=== PATIENT | female | born 1970 | race Caucasian/White ===

== ENCOUNTER 2022-05-22 10:00 | Emergency (ER) | payer SELFPAY ==
[~2022-05-22] VITALS: Ht 154.9 cm; Wt 70.0 kg
[2022-05-22] MEDS ORDERED: KETOROLAC TROMETHAMINE 30 MG/ML VIAL IVP ONE (11:45)
[2022-05-22] MEDS ORDERED: ACETAMINOPHEN 500 MG TABLET PO ONE (11:45)
[2022-05-22] MEDS ORDERED: ONDANSETRON HCL 4 MG/2 ML VIAL IVP ONE (11:45)
[2022-05-22] MEDS ORDERED: SODIUM CHLORIDE 0.9% 2,000 ML IV ONE (11:45)
[2022-05-22] MEDS ORDERED: MORPHINE SULFATE 4 MG/ML SYRINGE IVP ONE (12:00)
[2022-05-22 12:19] LABS: BASOPHILS % (AUTO) 0.5 % (0.0-2.0); EOSINOPHILS % (AUTO) 0.5 % (1.0-6.0); HEMOGLOBIN 13.3 g/dL (12.0-16.0); LYMPHOCYTES # (AUTO) 2.1 K/uL (1.0-4.8); LYMPHOCYTES % (AUTO) 39.3 % (22.0-44.0); MEAN CORPUSCULAR HEMOGLOBIN 30.9 pg (26.0-34.0); MEAN CORPUSCULAR HGB CONC 34.1 G/dL (31.0-37.0); MEAN CORPUSCULAR VOLUME 91 fL (80-100); MONOCYTES # (AUTO) 0.4 K/uL (0.1-1.0); MONOCYTES % (AUTO) 7.5 % (2.0-9.0); NEUTROPHILS # (AUTO) 2.8 K/uL (1.8-7.7); NEUTROPHILS % (AUTO) 52.2 % (40.0-70.0); PLATELET COUNT (AUTO) 248 K/uL (150-450); RED CELL DISTRIBUTION WIDTH 12.6 % (11.5-14.5)
[2022-05-22 12:28] LABS: ANION GAP 6 mmol/L (8-16); CALCIUM, TOTAL 9.2 mg/dL (8.8-10.5); CARBON DIOXIDE 28 mmol/L (22-29); CHLORIDE 106 mmol/L (98-107); GLOMERULAR FILTR. RATE CALC > 60 mL/min (>60); GLUCOSE,RANDOM 188 mg/dL (70-110); POTASSIUM 3.9 mmol/L (3.5-5.1); SODIUM SERUM 140 mmol/L (136-145); UREA NITROGEN, BLOOD 13 mg/dL (7-18)
[2022-05-22 12:34] LABS: ALANINE AMINOTRANSFERASE 44 U/L (12-78); ALBUMIN 3.6 g/dL (3.4-5.0); ALKALINE PHOSPHATASE 80 U/L (46-116); ASPARTATE AMINOTRANSFERASE 29 U/L (15-37); BILIRUBIN,TOTAL 0.8 mg/dL (0.1-1.0); TOTAL PROTEIN, SERUM 7.7 g/dL (6.4-8.2)
[2022-05-22 13:36] VITALS: BP 144/70
[2022-05-22] MEDS ORDERED: PROM-163 PO (14:01)
[2022-05-22] MEDS ORDERED: AMLO5TAB66 PO (14:01)
[2022-05-22] MEDS ORDERED: ACET-2080 PO (14:01)
== END 2022-05-22 14:13 | disposition home or self-care (01) ==
LOC: EMS 10:03
DX: G43.909 Migraine, unspecified, not intractable, without status migrainosus (principal); I10 Essential (primary) hypertension
CPT/HCPCS: 36415; 70450; 80053; 85025; 96361; 96374; 96375; 99284; J1885; J2270; J2405; J7030

== ENCOUNTER 2025-05-13 23:49 | Emergency (ER) | payer MEDICAID, OTHER ==
[~2025-05-13] VITALS: Ht 142.2 cm; Wt 53.6 kg
[~2025-05-13 23:49] MED LIST: ACET-2080 PO; AMLO5TAB66 PO; PROM-223 PO
[2025-05-13 23:52] VITALS: TEMP 97.9
[2025-05-14 00:15] LABS: GLUCOMETER DEV NAME(LOC) ERT.7; GLUCOSE,POINT OF CARE 137 MG/DL (70-110)
[2025-05-14 00:29] LABS: BASOPHILS % (AUTO) 0.3 % (0.0-2.0); EOSINOPHILS % (AUTO) 0.7 % (1.0-6.0); HEMATOCRIT 38.8 % (36-46); HEMOGLOBIN 13.2 g/dL (12.0-16.0); LYMPHOCYTES # (AUTO) 2.5 K/uL (1.0-4.8); LYMPHOCYTES % (AUTO) 31.2 % (22.0-44.0); MEAN CORPUSCULAR HEMOGLOBIN 30.9 pg (26.0-34.0); MEAN CORPUSCULAR VOLUME 91 fL (80-100); MONOCYTES # (AUTO) 0.5 K/uL (0.1-1.0); MONOCYTES % (AUTO) 5.8 % (2.0-9.0); PLATELET COUNT (AUTO) 253 K/uL (150-450); RED BLOOD CELL COUNT(AUTO) 4.27 MIL/uL (4.00-5.20); RED CELL DISTRIBUTION WIDTH 12.5 % (11.5-14.5); WHITE BLOOD COUNT (AUTO) 8.1 K/uL (4.5-11.0)
[2025-05-14 00:40] LABS: ANION GAP 12 mmol/L (8-16); CALCIUM, TOTAL 9.4 mg/dL (8.8-10.5); CARBON DIOXIDE 29 mmol/L (22-29); CHLORIDE 101 mmol/L (98-107); CREATININE 0.65 mg/dL (0.60-1.30); GLOMERULAR FILTR. RATE CALC > 60 mL/min (>60); GLUCOSE,RANDOM 147 mg/dL (70-110); POTASSIUM 3.3 mmol/L (3.5-5.1); SODIUM SERUM 142 mmol/L (136-145); UREA NITROGEN, BLOOD 16 mg/dL (7-18)
[2025-05-14 00:49] LABS: TROPONIN I-HIGH SENSITIVITY 5 ng/L (<51)
[2025-05-14] MEDS: LORazepam 2 MG TABLET PO ONE (00:57)
[2025-05-14] MEDS: IBUPROFEN 400 MG TABLET PO ONE (00:58)
[2025-05-14] MEDS: ACETAMINOPHEN 500 MG TABLET PO ONE (00:58)
[2025-05-14] MEDS: METOCLOPRAMIDE HCL 10 MG TABLET PO ONE (00:58)
[2025-05-14] MEDS: MAGNESIUM OXIDE 400 MG TABLET PO ONE (02:04)
[2025-05-14] MEDS: POTASSIUM CHLORIDE 20 MEQ ER TABLET PO ONE (02:04)
[2025-05-14 02:35] LABS: TROPONIN I-HIGH SENSITIVITY 12 ng/L (<51)
[2025-05-14] MEDS ORDERED: IOHEXOL 350 MG/ML 100 ML VIAL ONE (03:00)
[2025-05-14] MEDS ORDERED: SODIUM CHLORIDE 0.9% 100 ML ONE (03:01)
[2025-05-14 04:00] VITALS: BP 127/77; PULSE 118; RESP 20; O2SAT 97
== END 2025-05-14 04:41 | disposition home or self-care (01) ==
LOC: EMS 23:51
DX: R00.2 Palpitations (principal); E87.6 Hypokalemia; E83.42 Hypomagnesemia; E04.1 Nontoxic single thyroid nodule; E11.9 Type 2 diabetes mellitus without complications; I10 Essential (primary) hypertension; G43.909 Migraine, unspecified, not intractable, without status migrainosus; Z98.890 Other specified postprocedural states; Z79.899 Other long term (current) drug therapy
CPT/HCPCS: 99285; 80048; 82962; 83735; 84484; 85025; 85379; 36415; 71275; 93005; Q9967; J7050